=== PATIENT | female | born 2000 | race Caucasian/White ===

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

== ENCOUNTER 2018-11-08 22:54 | Emergency (ER) | payer OTHER ==
[2018-11-08] MEDS ORDERED: NS 1,000 ML IV ONE (23:10)
[2018-11-08 23:11] VITALS: BP 110/67
--- NOTE | 2018-11-08 23:11 | EDPHY ---
H & P Time Seen by Provider: 11/08/18 23:11 HPI/ROS: HPI CHIEF COMPLAINT: Diarrhea "I think I have Giardia" "my dog has it" HISTORY OF PRESENT ILLNESS: 18-year-old female otherwise healthy denies any significant medical history reports that she believes she may have Giardia her dog was recently diagnosed with this. She is having watery diarrhea lower abdominal cramping. Nausea no fever. No bloody stools. Denies chest pain or shortness of breath. Denies being . Denies urinary symptoms. Past Medical History: Denies significant medical history Past Surgical History: He denies significant surgical history Social History: Denies drugs alcohol tobacco. Family History: Noncontributory ROS REVIEW OF SYSTEMS: 10 Systems were reviewed and negative with the exception of the elements mentioned in the history of present illness. Exam Constitutional nontoxic appearing triage nursing summary reviewed, vital signs reviewed, awake/alert. Vital signs stable. Eyes normal conjunctivae and sclera, EOMI, PERRLA. HENT normal inspection, atraumatic, moist mucus membranes, no epistaxis, neck supple/ no meningismus, no raccoon eyes. Respiratory clear to auscultation bilaterally, normal breath sounds, no respiratory distress, no wheezing. Cardiovascular rate normal, regular rhythm, no murmur, no edema, distal pulses normal. Gastrointestinal nontender on exam. soft, non-tender, no rebound, no guarding , normal bowel sounds, no distension, no pulsatile mass. Genitourinary no CVA tenderness. Musculoskeletal no midline vertebral tenderness, full range of motion, no calf swelling, no tenderness of extremities, no meningismus, good pulses, neurovascularly intact. Skin pink, warm, & dry, no rash, skin atraumatic. Neurologic awake, alert and oriented x 3, AAOx3, moves all 4 extremities equally, motor intact, sensory intact, CN II-XII intact, normal cerebellar, normal vision, normal speech. Psychiatric normal mood/affect. Heme/Lymph/Immune no lymphadenopathy. Differential diagnosis includes but is not limited to and in no particular order : Bowel obstruction, appendicitis, gallbladder disease, diverticulitis, colitis , enteritis, perforated viscus, gastritis, GERD, esophagitis, urinary tract infection, pyelonephritis, kidney stones Medical Decision Making: Plan for this patient IV establishment IV fluid bolus basic blood work, stool studies, test for Giardia. Re-evaluate. Re-evaluation: 1256: Patient resting comfortably no acute distress abdomen soft nontender. She is not vomiting. Blood work reviewed no high white blood cell count. A stool studies sent but pending results. I will give the patient a prescription for Flagyl. She should hold this until she hears her stool study results. If it is positive Giardia she can start taking this. Additionally discussed return precautions with her she understands return emergency room she develops worsening abdominal pain, fever, vomiting. Source: Patient - Medical/Surgical History Hx Asthma: No Hx Chronic Respiratory Disease: No Hx Diabetes: No Hx Cardiac Disease: No Hx Renal Disease: No Hx Cirrhosis: No Hx Alcoholism: No Hx HIV/AIDS: No Hx Splenectomy or Spleen Trauma: No Other PMH: depression anxiety - Social History Smoking Status: Never smoked Constitutional: Initial Vital Signs Temperature (C) 36.5 C 11/08/18 23:10 Heart Rate 83 11/08/18 23:10 Respiratory Rate 16 11/08/18 23:10 Blood Pressure 110/67 11/08/18 23:10 O2 Sat (%) 98 11/08/18 23:10 O2 Delivery Mode Room Air Allergies/Adverse Reactions: No Known Allergies Allergy (Unverified 11/08/18 23:09) Home Medications: Medication Instructions Recorded metroNIDAZOLE [Flagyl 500 mg (*)] 500 mg PO BID #20 tab 11/09/18 Medical Decision Making - Data Points Laboratory Results: Laboratory Results 11/08/18 23:19 11/08/18 23:19 Medications Given: Discontinued Medications Sodium Chloride (Ns) 1,000 mls @ 0 mls/hr IV EDNOW ONE; Wide Open PRN Reason: Protocol Stop: 11/08/18 23:11 Last Admin: 11/08/18 23:21 Dose: 1,000 mls Departure - Departure Disposition: Home, Routine, Self-Care Clinical Impression: Diarrhea Qualifiers: Diarrhea type: unspecified type Qualified Code(s): R19.7 - Diarrhea, unspecified Condition: Good Instructions: Dehydration (ED), Acute Diarrhea (ED) Additional Instructions: 1. [place] diet over the next 24-48 hours 2. Do not eat or drink any spicy fatty greasy foods. 3. Return emergency room if worsening abdominal pain, fever, vomiting 4. Call in 24-48 hours about your stool studies. 5. Hold the antibiotic prescription until you see your results. Referrals: Royce Munoz MD [Primary Care Provider] - As per Instructions Prescriptions: metroNIDAZOLE [Flagyl 500 mg (*)] 500 mg PO BID #20 tab
[2018-11-08 23:33] LABS: PLATELET COUNT 270 10^3/uL (150-400)
== END 2018-11-09 01:05 | disposition home or self-care (01) ==
DX: R19.7 Diarrhea, unspecified (principal); E86.9 Volume depletion, unspecified; F41.8 Other specified anxiety disorders